=== PATIENT | female | born 1990 | race Caucasian/White ===

== ENCOUNTER 2021-11-26 19:03 | Emergency (ER) | payer OTHER, SELFPAY ==
[2021-11-26 19:15] VITALS: BP 161/89; PULSE 92; RESP 16; TEMP 36.4; BMI 27.5
--- NOTE | 2021-11-26 19:41 | CRLHL7_ITS ---
For Patients: As a result of the Century Cures Act, medical imaging exams and procedure reports are released immediately into your electronic medical record. You may view this report before your referring provider. If you have questions, please contact your health care provider. INDICATION: Abdominal pain; left-sided flank pain. CT ABDOMEN AND PELVIS WITHOUT CONTRAST TECHNIQUE: Multidetector CT imaging was performed through the abdomen and pelvis without intravenous contrast administration. Coronal and sagittal reconstructions were generated. COMPARISON: None. FINDINGS: Lower chest: Lung bases are clear. Liver: Within normal limits. Gallbladder and bile ducts: Questionable tiny gallstone in the dependent portion of the gallbladder on image 65 of series 2; if clinically indicated, this could be further evaluated with ultrasound. No evidence of cholecystitis. No biliary dilation identified. Pancreas: Unremarkable. Spleen: Unremarkable aside from incidental calcified granulomas. Adrenals: No nodules or masses. Kidneys, ureters, and urinary bladder: No urinary tract stones identified. No hydronephrosis involving either kidney. No bladder mass or definite wall thickening. Gastrointestinal tract: Normal caliber bowel without wall thickening or obstruction. The appendix is normal. Vascular structures: Normal for age. Peritoneum: No free air, abscess, or significant free fluid. Lymph nodes: No pathologically enlarged nodes identified. Reproductive organs: No pelvic masses. Bones: Normal for age. IMPRESSION: 1. No acute abnormality identified. No urinary tract stones or hydronephrosis. No apparent cause for the patient`s symptoms is demonstrated. 2. Nonacute findings as detailed above. SHADY ROJAS MD [facility] Dictated by Francisco Rojas MD @ 11/26/2021 8:39:10 PM Please note that all CT scans at this facility use dose modulation, iterative reconstruction, and/or weight-based dosing when appropriate to reduce radiation dose to as low as reasonably achievable. Dictated by: Francisco Rojas MD @ 11/26/2021 20:42:25 (Electronically Signed)
--- NOTE | 2021-11-26 19:44 | ED_ITS ---
HPI - Abdominal Pain General Chief Complaint: Abdominal Pain Stated Complaint: L Side Abdominal Pain Time Seen by Provider: 11/26/21 19:29 History of Present Illness HPI narrative: This 30-year-old female comes in rather sudden onset of abdominal pain in the lower abdomen and left abdomen. There is also some pain in her left flank region. This occurred about 2 or 3 hours prior to arrival and has been constant since then. She does not report any nausea, vomiting, dysuria, fevers, or altered bowel function. Prior to this she has been in good health. She states that she is going through a divorce and is selling her home and has lots of stress. She did take a test about a week ago which was negative. She states there is no opportunity for currently. Related Data Home Medications Medication Instructions Recorded Confirmed No Known Home Medications 11/26/21 11/26/21 Allergies Allergy/AdvReac Type Severity Reaction Status Date / Time amoxicillin Allergy Intermediate Rash Verified 11/26/21 19:19 Sulfa (Sulfonamide Allergy Intermediate Vomiting Verified 11/26/21 19:19 Antibiotics) Review of Systems Status of ROS Reports: 10 or more systems reviewed and unremarkable except as noted in History and below Narrative Constitutional: No fevers, no weight gain or loss. Eyes: No discharge. No vision changes. HENT: No congestion, no sore throat, no ear pain. Cardiovascular: No chest pain, no palpitations. Respiratory: No shortness of breath, no wheezes, no cough. Gastrointestinal: No vomiting, no diarrhea. Abdominal pain as described above. Genitourinary: No dysuria, no hematuria. Musculoskeletal: Normal range of motion. Skin: No rashes, no pruritis. Neurological: No dizziness, weakness, sensory change, speech change. Endo/Heme/Allergies: No bruising or bleeding. No polydipsia. Pysch: no suicidality, no anxiety, no insomnia. All other systems reviewed and are negative. PFSH PFS Social History Smoking Status: Current every day smoker What tobacco products do you use: cigarettes Do you use any of these nicotine containing products: None Second hand tobacco smoke exposure: No How often do you have a drink containing alcohol: 4 or more times a week How many standard drinks containing alcohol do you have on a typical day: 3 or 4 How often do you have six or more drinks on one occasion: Weekly AUDIT-C Alcohol total score: 8 Non-prescribed substance use: denies use Exam Narrative: Exam Narrative: Constitutional: Well-developed, well-nourished, no acute distress. HEENT: Normocephalic, atraumatic. Neck: Normal range of motion. Nontender. Supple. Heart: Regular. No murmurs. Normal rate. Intact distal pulses. Lungs: Clear to auscultation. No chest discomfort. No wheezes, rhonchi, or rales. Abdomen: Normal bowel sounds. Diffuse tenderness in the lower abdomen and left abdomen. No rebound tenderness. Genitalia: Deferred. Back: No midline tenderness. Normal range of motion. Extremities: Normal range of motion. No injury. Skin: Intact. No rash. Warm. No erythema or pallor. Neurologic: No altered sensation. No weakness. Alert and oriented. Psychiatric: No suicidality. No anxiety or depression. No insomnia. Nursing notes and vitals signs are reviewed. Const: Vital Signs, click to edit/add: Vital Signs - 24 hr 11/26/21 19:15 11/26/21 20:58 Temperature 97.6 F 98.5 F Pulse Rate [Right Pulse Oximeter] 92 88 Respiratory Rate 16 16 Blood Pressure [Ri ght Upper Arm] 161/89 H 125/85 Pulse Oximetry 98 Course Vital Signs Vital signs: Initial Vital Signs Temperature 97.6 F 11/26/21 19:15 Temperature Source Temporal Artery Scan 11/26/21 19:15 Pulse Rate 92 11/26/21 19:15 Respiratory Rate 16 11/26/21 19:15 Blood Pressure 161/89 H 11/26/21 19:15 Blood Pressure Mean 113 11/26/21 19:15 Blood Pressure Position Sitting 11/26/21 19:15 Oxygen Delivery Method 11/26/21 19:15 Vital Signs Temperature 97.6 F 11/26/21 19:15 Pulse Rate 92 11/26/21 19:15 Respiratory Rate 16 11/26/21 19:15 Blood Pressure 161/89 H 11/26/21 19:15 Temperature 98.5 F 11/26/21 20:58 Pulse Rate 88 11/26/21 20:58 Respiratory Rate 16 11/26/21 20:58 Blood Pressure 125/85 11/26/21 20:58 Pulse Oximetry 98 11/26/21 20:58 MDM - Abdominal Pain MDM Narrative Medical decision making narrative: This patient comes in with sudden onset of severe lower abdominal pain. This oc curred a few hours prior to arrival. Her symptoms were suspicious of a ruptured ovarian cyst. A CT scan of the abdomen and pelvis was done which showed no findings to explain the patient's pain. There is a possibility of a small stone in the gallbladder but she does not have any tenderness in her right upper quadrant. Urinalysis also shows normal findings. This may have been a cyst on the ovary that ruptured and now is not visualized. The patient does have a follow-up appointment with OBGYN clinic. She is okay to return home. She received a prescription for Toradol. Lab Data Labs: Lab Results 11/26/21 Range/Units 20:02 Urine Color Yellow (Yellow) Urine Appearance Clear (Clear) Urine pH 6.0 (5.0-8.5) Ur Specific [place] 1.010 (1.000-1.030) Urine Protein Negative (Negative) Urine Glucose (UA) Negative (Negative) Urine Ketones Negative (Negative) Urine Blood Negative (Negative) Urine Nitrite Negative (Negative) Urine Bilirubin Negative (Negative) Urine Urobilinogen 0.2 (0.2-1.0) Ur Leukocyte Esterase Negative (Negative) Urine RBC 0-2 (0-2) Urine WBC 0-2 (0-5) Ur Squamous Epith Cells Few (None-Few) Urine Bacteria None (None) Imaging Data CT scan - abdomen: Radiologist's impression: 1. No acute abnormality identified. No urinary tract stones or hydronephrosis. No apparent cause for the patient`s symptoms is demonstrated. 2. Nonacute findings as detailed above. Discharge Plan Discharge Clinical Impression: Abdominal pain Patient Disposition: Home, Self-Care Condition: Stable Instructions: Acute Abdominal Pain (ED) Additional Instructions: Abdominal pain possibly due to a ruptured ovarian cyst. Take medication as needed and indicated. Follow up with MD as scheduled or return if worsening. Prescriptions: No Action No Known Home Medications 0RF Follow Up/Referrals: Provider,Not a Local [Primary Care Provider] - Stand Alone Forms: Flukle Info Instructions
[2021-11-26 20:09] LABS: Appearance Urine Clear (Clear); Bilirubin Urine Negative (Negative); Blood Urine Negative (Negative); Color Urine Yellow (Yellow); Glucose Urine Negative (Negative); Ketones Urine Negative (Negative); Leukocyte Esterase Urine Negative (Negative); Nitrite Urine Negative (Negative); Protein Urine Negative (Negative); Urobilinogen Urine 0.2 (0.2-1.0)
[2021-11-26 20:50] LABS: RBC Urine 0-2 (0-2); Squamous Epithelial Cell Urine Few (None-Few); WBC Urine 0-2 (0-5)
[2021-11-26 20:58] VITALS: BP 125/85; PULSE 88; RESP 16; TEMP 36.9; O2SAT 98
[2021-11-26 21:26] VITALS: BP 125/85; PULSE 85; RESP 16; TEMP 36.9
== END 2021-11-26 21:20 | disposition home or self-care (01) ==
PROVIDERS: Emergency Provider Emergency Medicine Emergency Medical Services
DX: R10.30 Lower abdominal pain, unspecified (principal)
CPT/HCPCS: 74150; 81001; 99284